=== PATIENT | female | born 1995 | race Caucasian/White ===

== ENCOUNTER 2023-01-17 16:00 | Inpatient (IN) | payer OTHER, SELFPAY ==
[2023-01-17] VITALS (8 sets, daily range): BP systolic 89–122; BP diastolic 65–76; PULSE 63–95; BMI 36.1
--- NOTE | 2023-01-17 16:53 | LDADM ---
This patient, Lyubov Hampton, was admitted to Labor/Delivery/Recovery 103 on 01/17/23 at 16:00. Plans for labor, pain management and were discussed with patient. Patient/family oriented to hospital policies and general routines including ID bracelet, bed and alarms, visiting hours, pain management, procedures, bathroom and other care routines, personal items, smoking policy, room service/diet and guest tray routines, infant security routines, and visiting hours. Patient/Family are encouraged to report perceived risks to care and to ask questions if they do not understand what they are told or what they should do. See OBIX for further documentation.
[2023-01-17 17:12] LABS: Basophils Percent Auto 0.4 % (0.2-1.2); Eosinophils Absolute Auto 0.1 K/mm3 (0-0.3); Eosinophils Percent Auto 1.3 % (0-4.4); Hematocrit 40.2 % (37.0-47.0); Hemoglobin 13.5 g/dL (12.0-15.0); Immature Granulocyte Absolute 0.09 K/mm3 (0.00-0.031); Immature Granulocyte Percent A 0.9 % (0-0.5); Lymphocytes Absolute Auto 1.65 K/mm3 (0.9-3.2); Lymphocytes Percent Auto 16.3 % (18.3-44.2); Mean Corpuscular HGB Conc 33.6 g/dl (32-36); Mean Corpuscular Hemoglobin 32.2 pg (26-34); Mean Corpuscular Volume 95.9 fl (80-100); Mean Platelet Volume 9.9 fl (7.4-10.4); Monocytes Absolute Auto 0.7 K/mm3 (0.1-0.6); Monocytes Percent Auto 6.4 % (2.6-8.5); Neutrophils Absolute Auto 7.6 K/mm3 (1.3-6.7); Neutrophils Percent Auto 74.7 % (45.5-73.1); Platelet Count Result 209 k/mm3 (150-375); Red Blood Count 4.19 M/mm3 (4.2-5.4); Red Cell Distribution Width 13.6 % (11.5-14.5); White Blood Count 10.1 K/mm3 (4.5-10.0)
--- NOTE | 2023-01-17 17:45 | WPDANESEPP ---
Anes - Eval Pre Procedure Procedure: labor epidural Date/Time: 01/17/23 17:45 Pre Op Diagnosis: Induction of Labor Patient Data Age: 27 Gender: F Height: 1.63 m Weight: 95.5 kg Last Vital Signs Pulse 82 01/17/23 17:30 BP 114/71 01/17/23 17:30 O2 Del Method Room Air 01/17/23 16:52 Allergies Allergy/AdvReac Type Severity Reaction Status Date / Time sulfamethoxazole Allergy Hives Verified 12/28/22 14:35 [From Bactrim] trimethoprim [From Bactrim] Allergy Hives Verified 12/28/22 14:35 Home Medications Medication Instructions Recorded Confirmed Type vits no.126-ferrous fum 1 tablet PO DAILY 12/28/22 12/28/22 History 28 mg iron-folic acid 800 mcg tablet (Classic ) Laboratory Tests 01/17/23 17:01 WBC 10.1 H K/mm3 (4.5-10.0) RBC 4.19 L M/mm3 (4.2-5.4) Hgb 13.5 g/dL (12.0-15.0) Hct 40.2 % (37.0-47.0) MCV 95.9 fl (80-100) MCH 32.2 pg (26-34) MCHC 33.6 g/dl (32-36) RDW 13.6 % (11.5-14.5) Plt Count 209 k/mm3 (150-375) MPV 9.9 fl (7.4-10.4) Immature Gran % (Auto) 0.9 H % (0-0.5) Neut % (Auto) 74.7 H % (45.5-73.1) Lymph % (Auto) 16.3 L % (18.3-44.2) [place] % (Auto) 6.4 % (2.6-8.5) Eos % (Auto) 1.3 % (0-4.4) Baso % (Auto) 0.4 % (0.2-1.2) Lymph # (Auto) 1.65 K/mm3 (0.9-3.2) [place] # (Auto) 0.7 H K/mm3 (0.1-0.6) Eos # (Auto) 0.1 K/mm3 (0-0.3) Baso # (Auto) 0.0 K/mm3 (0.0-0.1) Abs Immat Gran (auto) 0.09 H K/mm3 (0.00-0.031) Absolute Neuts (auto) 7.6 H K/mm3 (1.3-6.7) Absolute Nucleated RBC 0.0 K/mm3 (0.0-0.012) Nucleated RBC % 0.0 % (0.0-0.2) RPR Pending HIV 1&2 Ab/P24 Ag 4thGn Pending Patient hx anesthesia problems: none Family hx anesthesia problems: none Results Review: All pre-operative results and documents have been reviewed as part of the pre-operative evaluation. [facility] Past Medical History Medical History (Updated 01/17/23 @ 17:50 by Kathy Hewitt CRNA) Obese Family History Family History Other No pertinent family history Social History Social History Smoking status: Never smoker Second hand tobacco smoke exposure: No Substance use: never Lack of Transportation: No Lack of Food: Never True Current Housing: I Have Housing Concerned About Future Housing: No Difficulty Paying Gas/Electric Bills: No Difficulty Paying for Meds: No Currently Unemployed: No Education: Master's Degree or Higher Difficulty w/ Childcare or Family Care: No Spiritual care concerns: No Exam Day of Procedure 01/17/23 17:45 Patient weight: obese Heart: regular rate and rhythm Lungs: normal air movement Airway: Mallampati scale Neurological: alert and oriented
[2023-01-17] MEDS: DINOPROSTONE 10 MG VAG INSERT VAGINAL (17:55)
[2023-01-17 18:04] LABS: HIV 1/2 Ab P24 Ag Result Negative (Negative)
[2023-01-18] VITALS (178 sets, daily range): BP systolic 81–130; BP diastolic 38–100; PULSE 25–144; RESP 16; TEMP 36.4–37.3; O2SAT 80–100
[2023-01-18] MEDS: LACTATED RINGERS 1,000 ML 125 ML IV CONT ×2 (07:00→11:28)
[2023-01-18] MEDS: OXYTOCIN 30 UNITS/NS 500 ML 30 UNITS/500 ML BAG 6 UNITS IV CONT (07:01)
--- NOTE | 2023-01-18 08:42 | PM.IMHP ---
H&P: HPI History of Present Illness Date/Time: 01/18/23 08:42 Chief Complaint: Here for induction of labor. Narrative: 27 y/o G1 at 39 4/7 weeks here desiring induction of labor. Cervidil overnight, has been withdrawn. GBS neg. Review of Systems Review of Systems: All systems reviewed & are unremarkable except as noted in HPI and below PMFSH Past Medical History Medical History Obese Family History Family History Other No pertinent family history Social History Social History Smoking status: Never smoker Second hand tobacco smoke exposure: No Substance use: never Lack of Transportation: No Lack of Food: Never True Current Housing: I Have Housing Concerned About Future Housing: No Difficulty Paying Gas/Electric Bills: No Difficulty Paying for Meds: No Currently Unemployed: No Education: Master's Degree or Higher Difficulty w/ Childcare or Family Care: No Spiritual care concerns: No Meds Home Medications and Allergies Home Medications Medication Instructions Recorded Confirmed Type vits no.126-ferrous fum 1 tablet PO DAILY 12/28/22 12/28/22 History 28 mg iron-folic acid 800 mcg tablet (Classic ) Allergies Allergy/AdvReac Type Severity Reaction Status Date / Time sulfamethoxazole Allergy Hives Verified 12/28/22 14:35 [From Bactrim] trimethoprim [From Bactrim] Allergy Hives Verified 12/28/22 14:35 Vital Signs Vital Signs - 24 hr 01/17/23 16:52 01/17/23 17:06 01/17/23 17:15 Temperature Pulse Rate 68 85 Blood Pressure 117/73 101/76 Oxygen Delivery Room Air 01/17/23 17:30 01/17/23 18:00 01/17/23 18:30 Temperature Pulse Rate 82 76 75 Blood Pressure 114/71 107/74 102/66 Oxygen Delivery 01/17/23 19:01 01/17/23 19:31 01/17/23 20:01 Temperature Pulse Rate 92 63 95 Blood Pressure 89/69 L 122/65 97/68 L Oxygen Delivery 01/18/23 00:06 01/18/23 00:15 01/18/23 00:30 Temperature Pulse Rate 61 82 79 Blood Pressure 122/64 113/72 106/59 L Oxygen Delivery 01/18/23 00:32 01/18/23 04:04 01/18/23 04:15 Temperature 36.9 C Pulse Rate 52 L 81 Blood Pressure 116/64 101/63 Oxygen Delivery 01/18/23 04:30 01/18/23 05:59 01/18/23 06:00 Temperature Pulse Rate 70 74 74 Blood Pressure 106/68 110/75 110/77 Oxygen Delivery 01/18/23 06:31 01/18/23 07:12 01/18/23 07:31 Temperature Pulse Rate 78 82 76 Blood Pressure 113/78 122/73 109/62 Oxygen Delivery 01/18/23 08:01 01/18/23 08:30 Temperature Pulse Rate 72 81 Blood Pressure 111/61 103/63 Oxygen Delivery Exam Const: Orientation/consciousness: patient oriented x3 Other: Well-developed, well-nourished female in no acute distress. Neck: Thyroid: thyroid normal Lymphatic: no lymphadenopathy noted (in neck, axilla or inguinal nodes) Resp: Effort & Inspection: normal respiratory effort Auscultation: clear to auscultation bilaterally Cardio: Rate: regular rate Rhythm: regular rhythm Heart sounds: S1 normal heart sound present and S2 normal heart sound present GI: Other: ABD: Soft, nontender, nondistended, gravid, vertex. NST reactive. TOCO: contractions every 3-5 min. No guarding or rebound tenderness. No hepatosplenomegaly. : General: Yes no CVA tenderness Other: Cervix 2-3/80/-2. AROM with clear fluid. Vertex. Back/Spine/Pelvis: Back: no CVA tenderness Skin: General skin exam: normal color and no rashes or lesions noted Neuro: General: patient oriented x3 Extrem: Other: Extremities: nontender with no edema Psych: Mental Status: mental status grossly normal Affect: normal affect H&P: Results Labs Labs: Short CBC 01/17/23 Range/Units 17:01 WBC 10.1 H (4.5-10.0) K/mm3 Hgb 13.5 (12.
[2023-01-18] MEDS: fentaNYL CITRATE INJ (*CRX) 100 MCG/2 ML VIAL 50 MCG IV PUSH (09:36)
[2023-01-18] MEDS: PHENYLEPHRINE 1,000 MCG/10 ML SYRINGE 100 MCG IV PUSH ×2 (12:27→12:45)
--- NOTE | 2023-01-18 13:12 | PM.OBPNLAB ---
Pain Control Date/time seen: 01/18/23 13:12 Comments: Comfortable with epidural Pelvic Exam Dilation (cm): 5 Effacement (%): 80 station: -1 Contractions Contraction frequency: 3 Contraction pattern: Regular Contraction intensity: Moderate Status status: Category l Assessment and Plan Pitocin rate (mU/min): 10 Comments: Continue labor.
[2023-01-18 14:30] LABS: Rapid Plasma Reagin Non-Reactive (NonReactive)
--- NOTE | 2023-01-18 18:38 | PM.OBPRVD ---
OB - Vaginal Delivery Note Procedure Delivery date: 01/18/23 Induction method: Per Misoprostol Protocol Delivery augmentation: Rupture of Membranes and Pitocin Delivery monitor: External FHT, External Uterine and Internal Uterine Episiotomy description: None Laceration Description: Perineal - 2nd Degree Delivery repair: vicryl (3-0) Specimen: Yes (cord blood) Quantitative Blood Loss (ml): 180 Anesthesia type: Epidural Disposition: PACU Complications: None Narrative: 27 y/o G1 at 39 4/7 weeks gestation who presented to the hospital for induction of labor. Cervidil was placed overnight, then withdrawn the next morning. Oxytocin was administered intravenously. Amniotomy was performed with return of clear fluid. She received an epidural for pain control. Her labor progressed and her cervix dilated completely. She pushed with good effort and delivered the infant's head to the perineum, followed by the body. The nose and mouth were bulb suctioned. After a delay, the cord was clamped and cut. The infant was handed off the field. Cord blood was collected. The placenta delivered spontaneously and was grossly normal in appearance. The usual 3 vessel cord was noted. A second degree midline perineal laceration was sustained. This was reapproximated using 3 0 Vicryl in the usual layered fashion. Excellent hemostasis resulted as did excellent reapproximation of the normal anatomy. Needle and instrument counts were correct. The patient was taken to recovery room in stable condition. The went to the nursery in stable condition. I was present and scrubbed for the entire delivery. [place] Baby Date of : 01/18/23 Time of : 18:17 Weeks of gestation at delivery: 39 Infant gender: Female Weight (pounds): 6 Weight (ounces): 13 presentation: vertex position: Right Occiput Anterior Placenta delivery description: Spontaneous and Normal Configuration Cord Vessel Description: 3 Vessels, Nuchal Cord (x2) and Delayed Cord Clamping score one minute: 7 score five minutes: 9
--- NOTE | 2023-01-18 18:40 | PM.OBDSVD ---
DS: Admitting Diagnosis Discharge Date 01/20/23 Admitting Diagnosis IUP at 39 4/7 weeks DS: Discharge Diagnosis Discharge Diagnosis (1) (normal spontaneous vaginal delivery): Code(s): O80 - Encounter for full-term uncomplicated delivery Status: Acute OB - DS: Summary OB Procedures : None OB Procedures Intrapartum: Spontaneous Vag Delivery OB Procedures: : None Peripartum Data Laceration Description: Perineal - 2nd Degree Episiotomy description: None Time Spent with Patient Time attestation: Total time spent providing and/or coordinating discharge services: DS: Data Data Completed and Pending Labs on day of discharge: Labs from last 24 hours 01/17/23 17:01 RPR Non-reactive Discharge Plan Discharge Attending physician on discharge: Juan Mcclendon Discharging Clinician: Juan Mcclendon Patient Disposition: Home, Self-Care Activity: pelvic rest Diet: regular Discharge Instructions: Education: Mom and Baby Guide Given to: Mother Follow-Up: Call your delivering provider's office for an appointment to be seen in: 6 Weeks Mom and baby should come to the [facility] for the follow-up appointment. Appointment Date/Time: January 21, 2023 at 11:00 am What to expect at your follow-up visit: Blood Pressure Check Call [phone] if you are unable to keep your appointment time. BREAST CARE: * Wear a snug supportive bra. * For engorgement discomfort: Bottle Feeding: * May apply ice packs PERINEAL CARE: * Until bleeding stops, use your pratima bottle after urinating * Change your pad frequently throughout the day * You may take sitz baths several times a day (fill your bathtub with warm water and soak for 20 minutes.) Do NOT bathe in the water * No tub baths until seen by your physician - You may shower ACTIVITY: * Rest as much as possible. * Do not exercise or lift anything heavier than your baby (such as laundry or other children.) * Avoid stairs or driving as much as possible. * Do not put anything into the vagina. No douching, tampons, or sexual activity until seen by physician. NOTIFY PHYSICIAN IF YOU HAVE ANY QUESTIONS OR IF ANY OF THE FOLLOWING SYMPTOMS OCCUR: * If your perineum becomes red, swollen, or more painful than what you have experienced in the hospital. * If your vaginal bleeding becomes foul smelling. * If your vaginal bleeding becomes more heavy than a period or if your bleeding changes from pink to bright red. However, you may pass an occasional walnut-sized clot once or twice for the first week . * If you experience a sharp, shooting pain in you calves. * If you discover a hard, reddened area on your breast or if you experience flu-like symptoms. * If you have a fever of 100.4 or greater DIET: * Eat regular, well-balanced meals. * Drink plenty of fluids daily. If , drink to thirst.Call or return if temperature above 100.4? F, increased abdominal pain, increased vaginal bleeding or any new problems. Stand Alone Forms: General Discharge Information Follow-up/Referrals: Juan Mcclendon MD [Physician] - 6 Weeks Discharge Medications: New ibuprofen 600 mg tablet 600 mg PO Q6H PRN (Reason: cramps) Qty: 30 0RF Continued Classic 28 mg iron- 800 mcg Tablet 1 tablet PO DAILY Date of admission: 01/17/23 16:00 Primary Care Provider: FabyErum Admitting Provider: Juan Mcclendon Attending physician on admission: Juan Mcclendon Condition: Stable
[2023-01-18] MEDS: IBUPROFEN 600 MG TABLET PO (21:03)
[2023-01-18] MEDS: WITCH HAZEL 40 PADS 1 PAD TOPICAL (21:03)
[2023-01-18] MEDS: BENZOCAINE 20% AER SPR (*SP) 56 GM CAN 1 SPRAY TOPICAL (21:03)
[2023-01-18] MEDS: ACETAMINOPHEN 325 MG TABLET 650 MG PO (21:04)
[2023-01-19] MEDS: ACETAMINOPHEN 325 MG TABLET 650 MG PO ×4 (04:09→23:02)
[2023-01-19] MEDS: IBUPROFEN 600 MG TABLET PO ×4 (04:09→23:02)
[2023-01-19 04:18] LABS: Hematocrit 36.6 % (37.0-47.0); Hemoglobin 12.4 g/dL (12.0-15.0)
[2023-01-19 08:00] VITALS: PULSE 92; RESP 16; O2SAT 99
--- NOTE | 2023-01-19 08:00 | PC.NURSE ---
PT introductions made and plan of care discussed per post , pain management, bottle feeding, daily care activities . PT and fob both recipients of such instructions and no barriers to learning identified at this time. PT received such instructions per one to one discussion, mom baby care guide and demonstrations this shift. PT verbalized understanding of such care.
[2023-01-19 08:02] VITALS: BP 105/43; PULSE 92; RESP 16; TEMP 36.3; O2SAT 99
--- NOTE | 2023-01-19 08:55 | PM.OBPNVD ---
OB - PN: Subj Subjective Date/time seen: 01/19/23 08:55 Narrative: Pain OK. OB - PN: Obj Data Labs 01/19/23 04:08 Labs: Laboratory Results - last 24 hr 01/17/23 01/19/23 17:01 04:08 Hgb 12.4 Hct 36.6 L RPR Non-reactive OB - PN A/P Plan day: 1 Comments: A: PPD#1, doing well. P: Routine care. Exam Psych: Other: AVSS ABD soft, nontender, fundus firm EXT nontender
[2023-01-19] MEDS: DOCUSATE SODIUM 100 MG CAPSULE PO ×2 (10:38→16:33)
[2023-01-19 12:00] VITALS: BP 98/43; PULSE 69; RESP 20; TEMP 36.5; O2SAT 98
--- NOTE | 2023-01-19 14:53 | WPDANLDPN2 ---
Anes-Prog Note L&D Date/Time: 01/19/23 14:53 Comfortable throughout: labor and delivery Neuraxial method: epidural Epidural/Spinal procedure site: clean & non-tender Neuro status: Neuro function grossly intact. Cardiovascular status: normal Respiratory status: normal Airway patency: baseline Mental status: baseline Post-Op hydration status: normal Vital Signs: Last Vital Signs Temp 36.5 C 01/19/23 12:00 Pulse 69 01/19/23 12:00 Resp 20 01/19/23 12:00 BP 98/43 L 01/19/23 12:00 Pulse Ox 98 01/19/23 12:00 O2 Del Method Room Air 01/19/23 08:00 Pain score (VAS): 0 I/O: Intake & Output 01/18/23 01/19/23 01/19/23 23:59 07:59 15:59 Intake Total 240 480 Output Total 180 Balance 60 480 Post-procedural complaints: none Patient feedback: Patient satisfied with anesthetic care.
[2023-01-19 20:39] VITALS: BP 108/65; PULSE 78; RESP 16; TEMP 36.5; O2SAT 99
[2023-01-20] MEDS: ACETAMINOPHEN 325 MG TABLET 650 MG PO (05:54)
[2023-01-20] MEDS: IBUPROFEN 600 MG TABLET PO (05:54)
[2023-01-20 07:15] VITALS: BP 108/65; PULSE 62; RESP 16; TEMP 37; O2SAT 99
--- NOTE | 2023-01-20 08:00 | PC.NURSE ---
PT introductions made and plan of care discussed per post , pain management, bottle feeding, daily care activities and pending discharge to home. PT and fob both recipients of such instructions and no barriers to learning identified at this time. PT received such instructions per one to one discussion, mom baby care guide and demonstrations this shift. PT verbalized understanding of such care.
[2023-01-20 09:48] VITALS: PULSE 62; RESP 16; O2SAT 99
[2023-01-20] MEDS: DOCUSATE SODIUM 100 MG CAPSULE PO (09:48)
--- NOTE | 2023-01-20 10:30 | PC.NURSE ---
Patient viewed the discharge video Mother & Baby Care, The First Two Weeks . Patient was given the opportunity and encouraged to ask questions. Patient verbalized understanding of information shared and has been given the mother/baby guide for home reference.
--- NOTE | 2023-01-20 10:41 | PM.OBPNVD ---
OB - PN: Subj Subjective Date/time seen: 01/20/23 10:41 Narrative: Pain OK. Would like to go home. OB - PN: Obj Data Labs 01/19/23 04:08 OB - PN A/P Plan day: 2 Comments: A: PPD#2, doing well. P: Home to f/u 6 weeks. Exam Psych: Other: AVSS ABD soft, nontender, fundus firm EXT nontender
--- NOTE | 2023-01-20 12:32 | PC.NURSE ---
PT discharged to home ambulatory accompanied by spouse and and walked to waiting car. follow up appt confirmed
[2023-01-21 11:20] VITALS: BP 121/70; PULSE 54; RESP 18; TEMP 36.9; O2SAT 100
== END 2023-01-20 12:32 | disposition home or self-care (01) | DRG 807 ==
LOC: ANHLDR 01-18 18:41 → ANHOB2 01-18 22:21
PROVIDERS: Admitting Provider Obstetrics & Gynecology; PCP Internal Medicine Geriatric Medicine; Visit Provider Obstetrics & Gynecology
DX: O99.214 Obesity complicating childbirth (principal); Z37.0 Single live birth; O70.1 Second degree perineal laceration during delivery; O69.81X0 Labor and delivery complicated by cord around neck, without compression, not applicable or unspecified; Z3A.39 39 weeks gestation of pregnancy
CPT/HCPCS: 36415; 85014; 85018; 85025; 86592; 86703; 86850; 86900; 86901; A9270; G0432; J2371; J2590; J2795; J3010; J7120

== ENCOUNTER 2024-08-31 11:46 | Observation (INO) | payer OTHER, SELFPAY ==
[2024-08-31 12:16] VITALS: BP 116/73; PULSE 99
[2024-08-31 12:23] LABS: Add Urine Microscopic? YES; Appearance Urine Clear (Clear); Glucose Urine UA Negative (Negative); Leukocyte Esterase Ur 2+ LEU/UL (Negative); Nitrate Urine Negative (Negative); Non Pathogenic Casts 0-2; Specific Grav Ur 1.017 (1.001-1.035)
[2024-08-31 12:31] VITALS: BP 113/62; PULSE 72
[2024-08-31 12:33] VITALS: BMI 34.4
[2024-08-31 12:46] VITALS: BP 100/61; PULSE 85
--- NOTE | 2024-09-04 16:48 | PM.OBTRLD ---
OB - Triage/Final Diagnosis Visit Information Comments/Additional reasons for admission: I have assessed the risk for this patient, Lyubov Hampton, and determined that she would benefit from observation care. Evaluation Laboratory results: Laboratory Tests 08/31/24 12:10 Urine Color Yellow Urine Appearance Clear Urine pH 7.0 Ur Specific [place] 1.017 Urine Protein Negative Urine Glucose (UA) Negative Urine Ketones Trace H Ur Blood (Man) Negative Urine Nitrate Negative Urine Bilirubin Negative Urine Urobilinogen 1.0 Leukocyte Esterase Rfl 2+ H Urine RBC 0-2 Urine WBC 6-10 H Ur Squamous Epith Cells Few Urine Bacteria 1+ H Urine Casts 0-2 Final Diagnosis (1) Cramping complicating , antepartum: Code(s): O26.899 - Other specified related conditions, unspecified trimester; R10.9 - Unspecified abdominal pain Status: Acute
== END 2024-08-31 13:01 | disposition home or self-care (01) ==
PROVIDERS: Admitting Provider Obstetrics & Gynecology; PCP Internal Medicine Geriatric Medicine; Visit Provider Obstetrics & Gynecology
DX: O26.893 Other specified pregnancy related conditions, third trimester (principal); R10.9 Unspecified abdominal pain; Z3A.35 35 weeks gestation of pregnancy
CPT/HCPCS: 81001; 87086; G0378; G0379

== ENCOUNTER 2024-09-27 01:15 | Inpatient (IN) | payer OTHER, SELFPAY ==
[2024-09-27] VITALS (183 sets, daily range): BP systolic 88–157; BP diastolic 46–121; PULSE 54–132; RESP 16–18; TEMP 36.3–37; O2SAT 76–100; BMI 36.1
[2024-09-27 02:14] LABS: Hematocrit 36.4 % (37.0-47.0); Hemoglobin 12.0 g/dL (12.0-15.0); Immature Granulocyte Percent A 0.6 % (0-0.5); Lymphocytes Absolute Auto 1.92 K/mm3 (0.9-3.2); Mean Corpuscular HGB Conc 33.0 g/dl (32-36); Mean Corpuscular Hemoglobin 30.8 pg (26-34); Mean Corpuscular Volume 93.6 fl (80-100); Nucleated Red Blood Cells Absolute Auto 0.000 K/mm3 (0.0-0.012); Nucleated Red Blood Cells Perc 0.0 % (0.0-0.2); Platelet Count Result 180 k/mm3 (150-375); Red Blood Count 3.89 M/mm3 (4.2-5.4); White Blood Count 9.4 K/mm3 (4.5-10.0)
--- NOTE | 2024-09-27 02:16 | LDADM ---
This patient, Lyubov Hampton, was admitted to Labor/Delivery/Recovery 106 on 09/27/24 at 01:15. Plans for labor, pain management and were discussed with patient. Patient/family oriented to hospital policies and general routines including ID bracelet, bed and alarms, visiting hours, pain management, procedures, bathroom and other care routines, personal items, smoking policy, room service/diet and guest tray routines, infant security routines, and visiting hours. Patient/Family are encouraged to report perceived risks to care and to ask questions if they do not understand what they are told or what they should do. See OBIX for further documentation.
[2024-09-27] MEDS: LACTATED RINGERS 1,000 ML 125 ML IV CONT ×2 (02:22→06:10)
[2024-09-27] MEDS: OXYTOCIN 30 UNITS/NS 500 ML 30 UNITS/500 ML BAG IV CONT (02:30)
[2024-09-27 02:31] LABS: OBXCEM ROM Plus Positive (Negative)
[2024-09-27 02:56] LABS: Syphilis IgG/IgM Antibody Non-Reactive (Nonreactive)
--- NOTE | 2024-09-27 05:01 | P.PNAN_ITS ---
Anes - Initial Pre Proc Eval Procedure: labor epidural Date/Time: 09/27/24 05:01 Surgeon: Juan Mcclendon MD Pre Op Diagnosis: Labor pain Patient Data Age: 28 Gender: F Height: 1.63 m Weight: 95.5 kg Last Vital Signs Temp 36.6 C 09/27/24 03:00 Pulse 72 09/27/24 05:00 BP 97/61 L 09/27/24 05:00 Pulse Ox 100 09/27/24 05:00 O2 Del Method Room Air 09/27/24 01:45 Allergies Allergy/AdvReac Type Severity Reaction Status Date / Time sulfamethoxazole (From Allergy Hives Verified 09/27/24 01:42 Bactrim) trimethoprim (From Bactrim) Allergy Hives Verified 09/27/24 01:42 Home Medications ?Medication ?Instructions ?Recorded ?Confirmed ?Type vits no.126-ferrous fum 1 tablet PO DAILY 09/27/24 History 28 mg iron-folic acid 800 mcg tablet (Classic ) Laboratory Tests 09/27/24 09/27/24 01:29 02:09 WBC 9.4 K/mm3 (4.5-10.0) RBC 3.89 L M/mm3 (4.2-5.4) Hgb 12.0 g/dL (12.0-15.0) Hct 36.4 L % (37.0-47.0) MCV 93.6 fl (80-100) MCH 30.8 pg (26-34) MCHC 33.0 g/dl (32-36) RDW 14.0 % (11.5-14.5) Plt Count 180 k/mm3 (150-375) MPV 9.6 fl (7.4-10.4) Immature Gran % (Auto) 0.6 H % (0-0.5) Neut % (Auto) 69.8 % (45.5-73.1) Lymph % (Auto) 20.5 % (18.3-44.2) [place] % (Auto) 7.1 % (2.6-8.5) Eos % (Auto) 1.6 % (0-4.4) Baso % (Auto) 0.4 % (0.2-1.2) Lymph # (Auto) 1.92 K/mm3 (0.9-3.2) [place] # (Auto) 0.7 H K/mm3 (0.1-0.6) Eos # (Auto) 0.2 K/mm3 (0-0.3) Baso # (Auto) 0.0 K/mm3 (0.0-0.1) Abs Immat Gran (auto) 0.06 H K/mm3 (0.00-0.031) Absolute Neuts (auto) 6.5 K/mm3 (1.3-6.7) Absolute Nucleated RBC 0.000 K/mm3 (0.0-0.012) Nucleated RBC % 0.0 % (0.0-0.2) Membranes Rupture Rom plus positive (Negative) Syphilis IgG/IgM Ab Non-reactive (Nonreactive) Blood Type O Positive Antibody Screen Negative Patient hx anesthesia problems: none Family hx anesthesia problems: none Results Review: All pre-operative results and documents have been reviewed as part of the pre- operative evaluation. [facility] Past Medical History Medical History Obese Family History Family History Other No pertinent family history Social History Social History Smoking status: Never smoker Second hand tobacco smoke exposure: No Substance use: never Do You Feel Safe in your Home?: Yes Lack of Transportation: No Lack of Food: Never True Current Housing: I Have Housing Concerned About Future Housing: No Difficulty Paying Gas/Electric Bills: No Difficulty Paying for Meds: No Currently Unemployed: No Education: Master's Degree or Higher Difficulty w/ Childcare or Family Care: No Spiritual care concerns: No Anes - Eval Final PreProcedure Day of Procedure 09/27/24 05:01 Heart: regular rate and rhythm Lungs: clear to auscultation and normal air movement Airway: Mallampati scale class 1 Neurological: alert and oriented ASA classification: II Anesthetic plan: proceed Anesthesia type and monitoring: regional epidural and standard monitoring Results Review: All pre-operative results and documents have been reviewed as part of the pre- operative evaluation. Informed Consent: The patient's anesthetic plan and its attendant risks and benefits were discussed with the patient/family/POA. Questions were solicited and answers provided to the satisfaction of the patient/family/POA.
--- NOTE | 2024-09-27 10:30 | P.DS_ITS ---
DS: Admitting Diagnosis Discharge Date 09/28/24 Admitting Diagnosis IUP at 39 weeks Labor DS: Discharge Diagnosis Discharge Diagnosis (1) (normal spontaneous vaginal delivery): Code(s): O80 - Encounter for full-term uncomplicated delivery Status: Acute OB - DS: Summary OB Procedures : None OB Procedures Intrapartum: Spontaneous Vag Delivery OB Procedures: : None Time Spent with Patient Time attestation: Total time spent providing and/or coordinating discharge services: DS: Data Data Completed and Pending Labs on day of discharge: Labs from last 24 hours 09/27/24 09/27/24 02:09 01:29 WBC 9.4 RBC 3.89 L Hgb 12.0 Hct 36.4 L MCV 93.6 MCH 30.8 MCHC 33.0 RDW 14.0 Plt Count 180 MPV 9.6 Immature Gran % (Auto) 0.6 H Neut % (Auto) 69.8 Lymph % (Auto) 20.5 [place] % (Auto) 7.1 Eos % (Auto) 1.6 Baso % (Auto) 0.4 Lymph # (Auto) 1.92 [place] # (Auto) 0.7 H Eos # (Auto) 0.2 Baso # (Auto) 0.0 Abs Immat Gran (auto) 0.06 H Absolute Neuts (auto) 6.5 Absolute Nucleated RBC 0.000 Nucleated RBC % 0.0 Membranes Rupture Rom plus positive Syphilis IgG/IgM Ab Non-reactive Blood Type O Positive Antibody Screen Negative Discharge Plan Discharge Attending physician on discharge: Juan Mcclendon Consulting providers: Gregory House Discharging Clinician: Gregory House Anticipated Discharge Date/Time: 09/28/24 08:22 Patient Disposition: Home Activity: may shower and pelvic rest Diet: regular Discharge Instructions: Education: Mom and Baby Guide Given to: Mother Follow-Up: Call your delivering provider's office for an appointment to be seen in: Call OB office for follow up visit [facility] the follow-up appointment. Appointment Date/Time: October 01, 2024 at 9:00 am What to expect at your follow-up visit: Blood Pressure Check Physical Assessment Call [phone] if you are unable to keep your appointment time. BREAST CARE: * Wear a snug supportive bra. * For engorgement discomfort: Breast Feeding: * Apply warm moist washcloths * Express milk as needed to relieve engorgement * Wear loose clothing Bottle Feeding: * May apply ice packs * For sore nipples: * Identify correct latch-on * Apply warm moist washcloths before and after nursing * Air dry nipples after nursing * May apply Lansinoh cream to nipples PERINEAL CARE: * Until bleeding stops, use your pratima bottle after urinating * Change your pad frequently throughout the day * You may take sitz baths several times a day (fill your bathtub with warm water and soak for 20 minutes.) Do NOT bathe in the water * No tub baths until seen by your physician - You may shower ACTIVITY: * Rest as much as possible. * Do not exercise or lift anything heavier than your baby (such as laundry or other children.) * Avoid stairs or driving as much as possible. * Do not put anything into the vagina. No douching, tampons, or sexual activity until seen by physician. NOTIFY PHYSICIAN IF YOU HAVE ANY QUESTIONS OR IF ANY OF THE FOLLOWING SYMPTOMS OCCUR: * If your laceration becomes red, swollen, or more painful than what you have experienced in the hospital. * If your vaginal bleeding becomes foul smelling. * If your vaginal bleeding becomes more heavy than a period or if your bleeding changes from pink to bright red. However, you may pass an occasional walnut- sized clot once or twice for the first week . * If you experience a sharp, shooting pain in you calves. * If you discover a hard, reddened area on your breast or if you experience flu- like symptoms. DIET: * Eat regular, well-balanced meals. * Drink plenty of fluids daily. If , drink to thirst. Patient Language: Thai Stand Alone Forms: General Discharge Information, Work/School Release IP Follow-up/Referrals: Juan Mcclendon MD [Physician, COLLIERY CLERK] - Call for Appointment Discharge Medications: Continued Classic 28 mg iron- 800 mcg Tablet 1 tablet PO DAILY Date of admission: 09/27/24 01:15 Primary Care Provider: FabyErum Admitting Provider: Juan Mcclendon Attending physician on admission: Juan Mcclendon Condition: Stable
--- NOTE | 2024-09-27 10:30 | PM.IMHP ---
H&P: HPI History of Present Illness Date/Time: 09/27/24 10:30 Chief Complaint: Thomas hernández Narrative: 28 y/o at 39 weeks here after a gush of clear fluid. SROM confirmed. She is now comfortable with epidural. Labor being augmented with oxytocin. Review of Systems Review of Systems: All systems reviewed & are unremarkable except as noted in HPI and below PMFSH Past Medical History Medical History Obese Family History Family History Other No pertinent family history Social History Social History Smoking status: Never smoker Second hand tobacco smoke exposure: No Substance use: never Do You Feel Safe in your Home?: Yes Lack of Transportation: No Lack of Food: Never True Current Housing: I Have Housing Concerned About Future Housing: No Difficulty Paying Gas/Electric Bills: No Difficulty Paying for Meds: No Currently Unemployed: No Education: Master's Degree or Higher Difficulty w/ Childcare or Family Care: No Spiritual care concerns: No Meds Home Medications and Allergies Home Medications ?Medication ?Instructions ?Recorded ?Confirmed ?Type vits no.126-ferrous fum 1 tablet PO DAILY 12/28/22 09/27/24 History 28 mg iron-folic acid 800 mcg tablet (Classic ) Allergies Allergy/AdvReac Type Severity Reaction Status Date / Time sulfamethoxazole (From Allergy Hives Verified 09/27/24 01:42 Bactrim) trimethoprim (From Bactrim) Allergy Hives Verified 09/27/24 01:42 Vital Signs Vital Signs - 24 hr 09/27/24 01:38 09/27/24 01:43 09/27/24 01:45 Temperature Pulse Rate Blood Pressure Pulse Oximetry 100 100 Oxygen Delivery Room Air 09/27/24 01:48 09/27/24 01:48 09/27/24 01:48 Temperature Pulse Rate Blood Pressure Pulse Oximetry 76 L 76 L 100 Oxygen Delivery 09/27/24 01:53 09/27/24 02:22 09/27/24 02:27 Temperature Pulse Rate Blood Pressure Pulse Oximetry 100 97 98 Oxygen Delivery 09/27/24 02:32 09/27/24 02:37 09/27/24 02:42 Temperature Pulse Rate 75 Blood Pressure 116/68 Pulse Oximetry 97 97 97 Oxygen Delivery 09/27/24 02:45 09/27/24 02:47 09/27/24 02:52 Temperature Pulse Rate 77 Blood Pressure 110/65 Pulse Oximetry 96 97 Oxygen Delivery 09/27/24 02:57 09/27/24 03:00 09/27/24 03:02 Temperature 97.9 F Pulse Rate 75 Blood Pressure 107/92 H Pulse Oximetry 96 97 Oxygen Delivery 09/27/24 03:07 09/27/24 03:12 09/27/24 03:19 Temperature Pulse Rate Blood Pressure Pulse Oximetry 97 95 100 Oxygen Delivery 09/27/24 03:24 09/27/24 03:29 09/27/24 03:30 Temperature Pulse Rate 77 Blood Pressure 129/77 Pulse Oximetry 99 97 Oxygen Delivery 09/27/24 03:34 09/27/24 03:39 09/27/24 03:44 Temperature Pulse Rate Blood Pressure Pulse Oximetry 99 97 97 Oxygen Delivery 09/27/24 03:45 09/27/24 03:49 09/27/24 03:54 Temperature Pulse Rate 70 Blood Pressure 118/71 Pulse Oximetry 98 97 Oxygen Delivery 09/27/24 03:59 09/27/24 04:00 09/27/24 04:04 Temperature Pulse Rate 85 Blood Pressure 114/63 Pulse Oximetry 100 97 Oxygen Delivery 09/27/24 04:09 09/27/24 04:14 09/27/24 04:15 Temperature Pulse Rate 68 Blood Pressure 112/66 Pulse Oximetry 97 97 Oxygen Delivery 09/27/24 04:19 09/27/24 04:24 09/27/24 04:29 Temperature Pulse Rate Blood Pressure Pulse Oximetry 97 97 97 Oxygen Delivery 09/27/24 04:30 09/27/24 04:34 09/27/24 04:39 Temperature Pulse Rate 75 Blood Pressure 120/64 Pulse Oximetry 98 96 Oxygen Delivery 09/27/24 04:44 09/27/24 04:45 09/27/24 04:49 Temperature Pulse Rate 70 Blood Pressure 115/68 Pulse Oximetry 97 96 Oxygen Delivery 09/27/24 04:55 09/27/24 05:00 09/27/24 05:05 Temperature Pulse Rate 72 Blood Pressure 97/61 L Pulse Oximetry 99 100 100 Oxygen Delivery 09/27/24 05:09 09/27/24 05:10 09/27/24 05:15 Temperature Pulse Rate Blood Pressure 120/88 144/114 H Pulse Oximetry 100 100 Oxygen Delivery 09/27/24 05:20 09/27/24 05:22 09/27/24 05:24 Temperature Pulse Rate 81 73 Blood Pressure 118/58 L 128/60 Pulse Oximetry 100 Oxygen Delivery 09/27/24 05:25 09/27/24 05:27 09/27/24 05:30 Temperature Pulse Rate 76 76 Blood Pressure 124/64 120/60 Pulse Oximetry 100 100 Oxygen Delivery 09/27/24 05:33 09/27/24 05:35 09/27/24 05:36 Temperature Pulse Rate 75 71 Blood Pressure 124/62 124/69 Pulse Oximetry 99 Oxygen Delivery 09/27/24 05:39 09/27/24 05:40 09/27/24 05:42 Temperature Pulse Rate 69 83 Blood Pressure 121/68 136/71 Pulse Oximetry 100 Oxygen Delivery 09/27/24 05:45 09/27/24 05:48 09/27/24 05:50 Temperature Pulse Rate 106 H 75 Blood Pressure 126/71 121/67 Pulse Oximetry 100 100 Oxygen Delivery 09/27/24 05:51 09/27/24 05:54 09/27/24 05:55 Temperature Pulse Rate 79 75 Blood Pressure 122/69 119/73 Pulse Oximetry 100 Oxygen Delivery 09/27/24 05:57 09/27/24 06:00 09/27/24 06:03 Temperature Pulse Rate 72 70 77 Blood Pressure 113/65 124/63 118/71 Pulse Oximetry 100 Oxygen Delivery 09/27/24 06:05 09/27/24 06:06 09/27/24 06:10 Temperature Pulse Rate 76 Blood Pressure 106/68 Pulse Oximetry 99 100 Oxygen Delivery 09/27/24 06:12 09/27/24 06:15 09/27/24 06:18 Temperature Pulse Rate 104 H 75 80 Blood Pressure 124/67 105/68 111/81 Pulse Oximetry 99 Oxygen Delivery 09/27/24 06:20 09/27/24 06:21 09/27/24 06:24 Temperature Pulse Rate 76 75 Blood Pressure 106/74 107/71 Pulse Oximetry 100 Oxygen Delivery 09/27/24 06:25 09/27/24 06:27 09/27/24 06:30 Temperature Pulse Rate 77 72 Blood Pressure 108/83 104/62 Pulse Oximetry 99 99 Oxygen Delivery 09/27/24 06:33 09/27/24 06:35 09/27/24 06:36 Temperature Pulse Rate 71 67 Blood Pressure 112/69 98/65 L Pulse Oximetry 100 Oxygen Delivery 09/27/24 06:39 09/27/24 06:40 09/27/24 06:42 Temperature Pulse Rate 67 70 Blood Pressure 101/60 109/64 Pulse Oximetry 99 Oxygen Delivery 09/27/24 06:45 09/27/24 06:50 09/27/24 06:55 Temperature Pulse Rate Blood Pressure Pulse Oximetry 99 99 98 Oxygen Delivery 09/27/24 07:00 09/27/24 07:05 09/27/24 07:10 Temperature Pulse Rate 62 Blood Pressure 99/59 L Pulse Oximetry 100 100 99 Oxygen Delivery 09/27/24 07:15 09/27/24 07:20 09/27/24 07:25 Temperature Pulse Rate 71 Blood Pressure 103/65 Pulse Oximetry 99 100 99 Oxygen Delivery 09/27/24 07:30 09/27/24 07:35 09/27/24 07:40 Temperature Pulse Rate 79 Blood Pressure 119/70 Pulse Oximetry 100 100 100 Oxygen Delivery 09/27/24 07:45 09/27/24 07:50 09/27/24 07:55 Temperature Pulse Rate 72 Blood Pressure 90/46 L Pulse Oximetry 100 99 100 Oxygen Delivery 09/27/24 08:00 09/27/24 08:05 09/27/24 08:10 Temperature Pulse Rate 69 Blood Pressure 115/61 Pulse Oximetry 100 99 99 Oxygen Delivery 09/27/24 08:15 09/27/24 08:20 09/27/24 08:25 Temperature Pulse Rate 132 H Blood Pressure 114/78 Pulse Oximetry 100 100 100 Oxygen Delivery 09/27/24 08:30 09/27/24 08:35 09/27/24 08:40 Temperature Pulse Rate 67 Blood Pressure 98/47 L Pulse Oximetry 100 100 100 Oxygen Delivery 09/27/24 08:45 09/27/24 08:50 09/27/24 08:55 Temperature Pulse Rate 78 Blood Pressure 93/66 L Pulse Oximetry 100 100 100 Oxygen Delivery 09/27/24 09:00 09/27/24 09:05 08/21/25 09:10 Temperature Pulse Rate Blood Pressure Pulse Oximetry 100 100 100 Oxygen Delivery 09/27/24 09:15 09/27/24 09:20 09/27/24 09:25 Temperature Pulse Rate 65 Blood Pressure 109/68 Pulse Oximetry 100 100 100 Oxygen Delivery 09/27/24 09:30 09/27/24 09:31 09/27/24 09:35 Temperature Pulse Rate 77 Blood Pressure 88/73 L Pulse Oximetry 100 100 Oxygen Delivery 09/27/24 09:37 09/27/24 09:40 09/27/24 09:45 Temperature Pulse Rate Blood Pressure Pulse Oximetry 100 100 100 Oxygen Delivery 09/27/24 09:47 09/27/24 09:49 09/27/24 09:51 Temperature Pulse Rate Blood Pressure Pulse Oximetry 100 100 100 Oxygen Delivery 09/27/24 09:54 09/27/24 09:56 09/27/24 09:57 Temperature Pulse Rate Blood Pressure Pulse Oximetry 100 97 100 Oxygen Delivery 09/27/24 09:58 09/27/24 10:01 09/27/24 10:03 Temperature Pulse Rate Blood Pressure Pulse Oximetry 100 100 100 Oxygen Delivery 09/27/24 10:05 09/27/24 10:11 09/27/24 10:14 Temperature Pulse Rate Blood Pressure Pulse Oximetry 100 100 100 Oxygen Delivery Exam Const: Other: Well-developed, well-nourished female in no acute distress. Neck: Other: Neck: Trachea midline, no thyromegaly or masses. Resp: Other: Lungs: Normal respiratory effort. Clear to auscultation bilaterally. Cardio: Other: Heart: Regular rate and rhythm with normal S1-S2. GI: Other: ABD: Soft, nontender, nondistended, gravid. No guarding or rebound tenderness. No hepatosplenomegaly. NST reactive. TOCO: contractions every 3-4 min. : Other: Cervix: 5/50/-2. IUPC placed. Vertex. Back/Spine/Pelvis: Other: Back: No CVA tenderness. Skin: Other: Skin: No lesions, rashes or ulcers noted. Extrem: Other: Extremities: nontender with no edema Psych: Other: Mental status grossly normal, with normal mood and affect. H&P: Results Labs Labs: Short CBC 09/27/24 Range/Units 02:09 WBC 9.4 (4.5-10.0) K/mm3 Hgb 12.0 (12.0-15.0) g/dL Hct 36.4 L (37.0-47.0) % Plt Count 180 (150-375) k/mm3 Assessment and Plan Assessment and plan (1) Active labor at term: Status: Acute Assessment and Plan: A: IUP at term with SROM. P: Augment labor as needed. Anticipate .
--- NOTE | 2024-09-27 10:30 | PM.OBPRVD ---
OB - Vaginal Delivery Note Procedure Delivery date: 09/27/24 Induction method: None Delivery augmentation: Pitocin Delivery monitor: External FHT, External Uterine and Internal Uterine Route of delivery: Episiotomy description: None Laceration Description: Perineal - 2nd Degree Delivery repair: vicryl (3-0) Specimen: Yes (cord blood) Quantitative Blood Loss (ml): 90 Anesthesia type: Epidural Disposition: PACU Complications: None Narrative: 28 y/o at 39 weeks gestation who presented to the hospital after a gush of clear fluid. SROM was diagnosed. She received labor augmentation with oxytocin. She received an epidural for pain control. Her labor progressed and her cervix dilated completely. She pushed with good effort and delivered the 's head to the perineum, followed by the body. The nose and mouth were bulb suctioned. After a delay, the cord was clamped and cut. The was handed off the field. Cord blood was collected. The placenta delivered spontaneously and was grossly normal in appearance. The usual 3 vessel cord was noted. A second degree midline perineal laceration was sustained. This was reapproximated using 3 0 Vicryl in the usual layered fashion. Excellent hemostasis resulted as did excellent reapproximation of the normal anatomy. Needle and instrument counts were correct. The patient was taken to recovery room in stable condition. The infant went to the nursery in stable condition. I was present and scrubbed for the entire delivery. Baby Date of : 09/27/24 Time of : 10:13 Gestational Age by Date: 39 Infant gender: Male presentation: vertex position: Right Occiput Posterior Placenta delivery description: Spontaneous and Normal Configuration Cord Vessel Description: 3 Vessels and Delayed Cord Clamping
[2024-09-27] MEDS: OXYTOCIN 30 UNITS/NS 500 ML 30 UNITS/500 ML BAG 125 UNITS IV CONT (10:50)
[2024-09-27] MEDS: LORATADINE 10 MG TABLET PO (12:07)
[2024-09-27] MEDS: WITCH HAZEL 40 PADS 1 PAD TOPICAL (12:07)
[2024-09-27] MEDS: BENZOCAINE 20% AER SPR (*SP) 56 GM CAN 1 SPRAY TOPICAL (12:07)
--- NOTE | 2024-09-27 13:22 | OBPPTRN ---
Patient transferred to post room # 279 via wheelchair. Support person present. Oriented to unit, room, information board, rooming in, admission packet and security measures. Patient verbalizes understanding.
[2024-09-27] MEDS: DOCUSATE SODIUM 100 MG CAPSULE PO (13:48)
[2024-09-27] MEDS: IBUPROFEN 600 MG TABLET PO ×2 (13:48→19:58)
[2024-09-27] MEDS: ACETAMINOPHEN 325 MG TABLET 650 MG PO ×2 (15:46→21:43)
--- NOTE | 2024-09-27 21:45 | P.PNOB_ITS ---
OB - PN: Subj Subjective Date/time seen: 09/28/24 21:45 Patient comments: pain well controlled, tolerating diet and other (Decreasing lochia.) baby status: doing well and nursing well [place] feeding status: exclusively breast feeding OB - PN: Obj Data Labs 09/28/24 04:26 Labs: Laboratory Results - last 24 hr 09/27/24 09/27/24 01:29 02:09 WBC 9.4 RBC 3.89 L Hgb 12.0 Hct 36.4 L MCV 93.6 MCH 30.8 MCHC 33.0 RDW 14.0 Plt Count 180 MPV 9.6 Immature Gran % (Auto) 0.6 H Neut % (Auto) 69.8 Lymph % (Auto) 20.5 [place] % (Auto) 7.1 Eos % (Auto) 1.6 Baso % (Auto) 0.4 Lymph # (Auto) 1.92 [place] # (Auto) 0.7 H Eos # (Auto) 0.2 Baso # (Auto) 0.0 Abs Immat Gran (auto) 0.06 H Absolute Neuts (auto) 6.5 Absolute Nucleated RBC 0.000 Nucleated RBC % 0.0 Membranes Rupture Rom plus positive Syphilis IgG/IgM Ab Non-reactive Blood Type O Positive Antibody Screen Negative OB - PN A/P Assessment and Plan (1) (normal spontaneous vaginal delivery): Code(s): O80 - Encounter for full-term uncomplicated delivery Status: Acute Plan day: 1 Plan: routine care Comments: Patient doing well. Request discharge to home. Time Spent With Patient Time: Total time spent is greater than 50% in coordination of care (as documented) at patient's floor/unit and/or counseling patient: Exam 2 Psych: Affect: normal affect Other: Abd: fundus firm below umbilicus, nontender Ext: nontender
[2024-09-28] MEDS: IBUPROFEN 600 MG TABLET PO (01:30)
[2024-09-28] MEDS: ACETAMINOPHEN 325 MG TABLET 650 MG PO ×2 (04:11→11:45)
[2024-09-28 04:20] VITALS: BP 127/87; PULSE 64; RESP 18; TEMP 36.3; O2SAT 98
[2024-09-28 05:11] LABS: Hematocrit 36.5 % (37.0-47.0); Hemoglobin 11.7 g/dL (12.0-15.0)
[2024-09-28 07:20] VITALS: BP 116/68; PULSE 65; RESP 16; TEMP 36.6; O2SAT 98
[2024-10-01 09:31] VITALS: BP 114/68; PULSE 59; RESP 18; TEMP 36.8; O2SAT 100
== END 2024-09-28 12:18 | disposition home or self-care (01) | DRG 807 ==
LOC: ANHLDR 05:02 → ANHOB2 13:35
PROVIDERS: Obstetrics & Gynecology; Admitting Provider Obstetrics & Gynecology; PCP Internal Medicine Geriatric Medicine; Visit Provider Obstetrics & Gynecology
DX: O70.1 Second degree perineal laceration during delivery (principal); Z37.0 Single live birth; Z3A.39 39 weeks gestation of pregnancy
CPT/HCPCS: 36415; 84112; 85014; 85018; 85025; 86593; 86850; 86900; 86901; A9270; J2590; J2795; J7120

== ENCOUNTER 2024-10-03 12:27 | Outpatient (CLI) | payer OTHER, SELFPAY ==
[2024-10-03 13:01] VITALS: BP 150/81
[2024-10-03 13:16] VITALS: BP 147/89; PULSE 42
[2024-10-03 13:19] LABS: Hematocrit 39.4 % (37.0-47.0); Hemoglobin 12.9 g/dL (12.0-15.0); Immature Granulocyte Percent A 0.3 % (0-0.5); Lymphocytes Absolute Auto 1.60 K/mm3 (0.9-3.2); Mean Corpuscular HGB Conc 32.7 g/dl (32-36); Mean Corpuscular Hemoglobin 31.4 pg (26-34); Mean Corpuscular Volume 95.9 fl (80-100); Nucleated Red Blood Cells Absolute Auto 0.000 K/mm3 (0.0-0.012); Nucleated Red Blood Cells Perc 0.0 % (0.0-0.2); Platelet Count Result 215 k/mm3 (150-375); Red Blood Count 4.11 M/mm3 (4.2-5.4); White Blood Count 6.3 K/mm3 (4.5-10.0)
[2024-10-03 13:29] LABS: Alanine Aminotransferase 39 U/L (6-35); Albumin Level 3.4 g/dL (3.5-5.1); Alkaline Phosphatase 136 U/L (38-126); Anion Gap 3 mmol/L (4-12); Aspartate Amino Transferase 41 U/L (14-36); Bilirubin,Total 0.3 mg/dL (0.2-1.3); Blood Urea Nitrogen 10 mg/dL (7-17); Calcium 8.8 mg/dL (8.4-10.2); Carbon Dioxide 27 mmol/L (22-30); Chloride 106 mmol/L (98-107); Estimated Glomerular Filt Rate > 60; Glucose 82 mg/dL (65-110); Potassium 4.2 mmol/L (3.4-5.0); Sodium 136 mmol/L (137-145); Total Protein 6.6 g/dL (6.3-8.2); Uric Acid 6.5 mg/dL (2.5-7.5)
[2024-10-03 13:31] VITALS: BP 154/85; PULSE 43
[2024-10-03 13:46] VITALS: BP 142/86; PULSE 40
[2024-10-03] MEDS: ACETAMINOPHEN/BUTALBITAL/CAFFEINE 325-50-40 MG TABLET (FIORICET) 2 TAB PO (13:57)
[2024-10-03 15:07] VITALS: BP 139/77; PULSE 43
--- NOTE | 2024-10-03 15:15 | PC.NURSE ---
Dr Mcclendon informed that the fioricet helped the patient with her headache. Will send in a RX. Ok to [facility].
--- NOTE | 2024-10-03 15:25 | PC.NURSE ---
Addendum entered by Donna Corea RN 10/03/24 15:27: call made at [id number] Original Note: Dr Mcclendon informed of lab results, headache and lab results. Orders for meds received.
== END 2024-10-03 15:31 | disposition home or self-care (01) ==
LOC: ANHOBOP 12:31 → ANHOBPP 12:33
PROVIDERS: PCP Internal Medicine Geriatric Medicine; Visit Provider Obstetrics & Gynecology
DX: O13.9 Gestational [pregnancy-induced] hypertension without significant proteinuria, unspecified trimester (principal); Z3A.00 Weeks of gestation of pregnancy not specified
CPT/HCPCS: 36415; 80053; 84550; 85025; 99199; A9270